=== PATIENT | female | born 1985 ===

== ENCOUNTER 2017-05-23 21:32 | Emergency (ER) | payer SELFPAY ==
[2017-05-23 21:53] VITALS: BP 106/72
[2017-05-23 22:10] LABS: Basophils % (Auto) 0.3 % (0.0-1.8); Eosinophils % (Auto) 0.2 % (0.0-4.3); Hematocrit 43.5 % (30.3-42.9); Mean Corpuscular HGB Conc 32 % (30-34); Mean Corpuscular Hemoglobin 28 pg (28-32); Mean Corpuscular Volume 88 fl (79-97); Platelet Count 215 K/mm3 (140-440); Red Blood Count 4.96 M/mm3 (3.65-5.03); Red Cell Distribution Width 14.5 % (13.2-15.2); White Blood Count 7.9 K/mm3 (4.5-11.0)
[2017-05-23 22:28] LABS: Alanine Aminotransferase 18 units/L (7-56); Albumin 4.5 g/dL (3.9-5); Albumin/Globulin Ratio 1.2 %; Alkaline Phosphatase 52 units/L (35-129); Anion Gap 21 mmol/L; BUN/Creatinine Ratio 28.57; Blood Urea Nitrogen 20 mg/dL (7-17); Carbon Dioxide 23 mmol/L (22-30); Chloride 100.5 mmol/L (98-107); Glucose 86 mg/dL (65-100); Lipase 27 units/L (13-60); Potassium 3.7 mmol/L (3.6-5.0); Sodium 141 mmol/L (137-145); Total Protein 8.4 g/dL (6.3-8.2)
[2017-05-23 22:32] LABS: Calcium 9.2 mg/dL (8.4-10.2)
[2017-05-23 23:08] LABS: Bilirubin,Urine NEG (Negative); Blood,Urine SM (Negative); Ketones,Urine 20 mg/dL (Negative); Leukocyte Esterase,Urine NEG (Negative); Mucus,Urine 3+ /HPF; Nitrite,Urine NEG (Negative); Urobilinogen,Urine < 2.0 mg/dL (<2.0)
--- NOTE | 2017-05-24 17:29 | ED Elopement Review ---
ED Pt Elopement review - Results review Lab results: Laboratory Tests 05/23/17 05/23/17 05/23/17 21:56 21:56 22:17 WBC 7.9 RBC 4.96 Hgb 14.0 Hct 43.5 H MCV 88 MCH 28 MCHC 32 RDW 14.5 Plt Count 215 Lymph % (Auto) 22.7 Cecil % (Auto) 7.8 H Eos % (Auto) 0.2 Baso % (Auto) 0.3 Lymph # 1.8 Cecil # 0.6 Eos # 0.0 Baso # 0.0 Seg Neutrophils % 69.0 Seg Neutrophils # 5.4 Sodium 141 Potassium 3.7 Chloride 100.5 Carbon Dioxide 23 Anion Gap 21 BUN 20 H Creatinine 0.7 Estimated GFR > 60 BUN/Creatinine Ratio 28.57 Glucose 86 Calcium 9.2 Total Bilirubin 0.70 AST 16 ALT 18 Alkaline Phosphatase 52 Total Protein 8.4 H Albumin 4.5 Albumin/Globulin Ratio 1.2 Lipase 27 Urine Color Yellow Urine Turbidity Clear Urine pH 5.0 Ur Specific Cora 1.031 H Urine Protein 30 mg/dl Urine Glucose (UA) Neg Urine Ketones 20 Urine Blood Sm Urine Nitrite Neg Urine Bilirubin Neg Urine Urobilinogen < 2.0 Ur Leukocyte Esterase Neg Urine WBC (Auto) 3.0 Urine RBC (Auto) 3.0 U Epithel Cells (Auto) 3.0 Urine Mucus 3+ - Call Back decision Pt Call Back Decision: No action required
== END 2017-05-24 03:15 | disposition left against medical advice (07) ==
LOC: ED 21:32
DX: R11.11 Vomiting without nausea (principal); Z53.21 Procedure and treatment not carried out due to patient leaving prior to being seen by health care provider
CPT/HCPCS: 36415; 80053; 81001; 83690; 85025